=== PATIENT | male | born 1980 | race Caucasian/White ===

== ENCOUNTER 2021-01-15 05:38 | Day surgery (SDC) | payer OTHER ==
[~2021-01-15] VITALS: Ht 182.9 cm; Wt 100.0 kg
[2021-01-15] MEDS ORDERED: SODIUM CHLORIDE 0.9% 1,000 ML ONE (05:47)
[2021-01-15 06:09] LABS: COVID AG,FIA SOURCE NASOPHARYNGEAL
[2021-01-15 06:15] LABS: BASOPHILS % (AUTO) 0.5 % (0.0-2.0); EOSINOPHILS % (AUTO) 2.5 % (1.0-6.0); HEMATOCRIT 43.1 % (41-53); HEMOGLOBIN 14.7 g/dL (13.5-17.5); LYMPHOCYTES # (AUTO) 1.6 K/uL (1.0-4.8); LYMPHOCYTES % (AUTO) 32.6 % (22.0-44.0); MEAN CORPUSCULAR HEMOGLOBIN 30.8 pg (26.0-34.0); MEAN CORPUSCULAR HGB CONC 34.1 G/dL (31.0-37.0); MEAN CORPUSCULAR VOLUME 90 fL (80-100); MONOCYTES # (AUTO) 0.6 K/uL (0.1-1.0); MONOCYTES % (AUTO) 13.1 % (2.0-9.0); NEUTROPHILS # (AUTO) 2.5 K/uL (1.8-7.7); NEUTROPHILS % (AUTO) 51.3 % (40.0-70.0); PLATELET COUNT (AUTO) 198 K/uL (150-450); RED BLOOD CELL COUNT(AUTO) 4.78 MIL/uL (4.50-5.90); RED CELL DISTRIBUTION WIDTH 12.7 % (11.5-14.5)
[2021-01-15] MEDS ORDERED: ASPIRIN 325 MG TABLET PO ONE (06:15)
[2021-01-15] MEDS ORDERED: DiphenhydrAMINE HCL 50 MG CAPSULE PO ONE (06:15)
[2021-01-15] MEDS ORDERED: DIAZEPAM 10 MG TABLET PO ONE (06:15)
[2021-01-15] MEDS ORDERED: CILO100T PO (06:20)
[2021-01-15] MEDS ORDERED: DiphenhydrAMINE HCL 50 MG CAPSULE ONE (06:23)
[2021-01-15 06:25] LABS: ANION GAP 5 mmol/L (8-16); CALCIUM, TOTAL 8.7 mg/dL (8.8-10.5); CARBON DIOXIDE 32 mmol/L (22-29); CHLORIDE 105 mmol/L (98-107); CREATININE 0.95 mg/dL (0.60-1.30); GLOMERULAR FILTR. RATE CALC > 60 mL/min (>60); GLUCOSE,RANDOM 98 mg/dL (70-110); POTASSIUM 4.2 mmol/L (3.5-5.1); SODIUM SERUM 142 mmol/L (136-145); UREA NITROGEN, BLOOD 13 mg/dL (7-18)
[2021-01-15] MEDS ORDERED: CLOP75TA32 PO (06:30)
[2021-01-15] MEDS ORDERED: ISOS30TA68 PO (06:30)
[2021-01-15] MEDS ORDERED: NITR0.4T50 SL (06:30)
[2021-01-15] MEDS ORDERED: ASPI-1444 PO (06:30)
[2021-01-15] MEDS ORDERED: ATOR40TA71 PO (06:30)
[2021-01-15] MEDS ORDERED: METO-391 PO (06:30)
[2021-01-15] MEDS ORDERED: LOSA50TA37 PO (06:30)
[2021-01-15 06:42] LABS: INR 1.1 (0.9-1.1); PROTHROMBIN TIME 11.7 SEC (9.4-11.6)
[2021-01-15] MEDS ORDERED: SODIUM CHLORIDE 0.9% 1,000 ML IV ONE (06:45)
[2021-01-15] MEDS ORDERED: SODIUM BICARBONATE 50 MEQ/50 ML VIAL ONE (07:13)
[2021-01-15] MEDS ORDERED: HEPARIN SODIUM 1000 UNITS/NS 1,000 ML ONE (07:13)
[2021-01-15] MEDS ORDERED: IOHEXOL 300 MG/ML 50 ML VIAL ONE (07:13)
[2021-01-15] MEDS ORDERED: IOHEXOL 300 MG/ML 100 ML VIAL ONE (07:13)
[2021-01-15] MEDS ORDERED: IOHEXOL 300 MG/ML 150 ML VIAL ONE (07:13)
[2021-01-15] MEDS ORDERED: IODIXANOL 320 MG/ML 150 ML VIAL ONE ×2 (07:52→09:36)
[2021-01-15] MEDS ORDERED: IODIXANOL 320 MG/ML 50 ML VIAL ONE (07:52)
[2021-01-15 07:54] VITALS: BP 128/74
[2021-01-15] MEDS ORDERED: FentaNYL CITRATE PF 100 MCG/2 ML VIAL ONE (08:06)
[2021-01-15] MEDS ORDERED: MIDAZOLAM HCL 2 MG/2 ML VIAL ONE (08:06)
[2021-01-15] MEDS ORDERED: IODIXANOL 320 MG/ML 100 ML VIAL ONE (08:40)
[2021-01-15] MEDS ORDERED: FentaNYL CITRATE PF 100 MCG/2 ML VIAL IVP ONE (08:45)
[2021-01-15] MEDS ORDERED: LIDOCAINE 1% 30 ML/SOD BICARB 8.4% 4 ML SQ ONE (08:45)
[2021-01-15] MEDS ORDERED: HEPARIN SODIUM 1000 UNITS/NS 1,000 ML IARTER ONE (08:45)
[2021-01-15] MEDS ORDERED: HEPARIN SODIUM,PORCINE 5,000 UNITS/ML VIAL IVP ONE (08:45)
[2021-01-15] MEDS ORDERED: MIDAZOLAM HCL 2 MG/2 ML VIAL IVP ONE (08:45)
[2021-01-15] MEDS ORDERED: NITROGLYCERIN 50 MG/D5% WATER 250 ML ONE (09:23)
[2021-01-15] MEDS ORDERED: IODIXANOL 320 MG/ML 50 ML VIAL IARTER ONE (09:30)
[2021-01-15] MEDS ORDERED: NITROGLYCERIN/D5W 50 MG/250 ML IV BOTTLE IARTER ONE (09:30)
[2021-01-15] MEDS ORDERED: IODIXANOL 320 MG/ML 150 ML VIAL IARTER ONE (09:30)
[2021-01-15 09:46] VITALS: BP 130/68
[2021-01-15] MEDS ORDERED: HYDROCODONE/ACETAMINOPHEN 10-325 MG TABLET PO PRN (10:30)
[2021-01-15] MEDS ORDERED: ACETAMINOPHEN 325 MG TABLET PO PRN (10:30)
[2021-01-15] MEDS ORDERED: ACETAMINOPHEN 325 MG TABLET ONE (11:59)
== END 2021-01-15 13:05 | disposition home or self-care (01) ==
LOC: CATHLAB 05:38
PROVIDERS: ATTEND Internal Medicine Cardiovascular Disease
DX: I70.211 Atherosclerosis of native arteries of extremities with intermittent claudication, right leg (principal); G47.30 Sleep apnea, unspecified; I25.10 Atherosclerotic heart disease of native coronary artery without angina pectoris; E78.5 Hyperlipidemia, unspecified; K21.9 Gastro-esophageal reflux disease without esophagitis; F41.9 Anxiety disorder, unspecified; E03.9 Hypothyroidism, unspecified; Z82.49 Family history of ischemic heart disease and other diseases of the circulatory system; F12.90 Cannabis use, unspecified, uncomplicated; Z95.5 Presence of coronary angioplasty implant and graft; Z79.01 Long term (current) use of anticoagulants
CPT/HCPCS: 36415; 37225; 75630; 80048; 85025; 85610; 85730; 87426; 93005; 99152; 99153; C1714; C1725; C1760; C1769; C1887; C9803; J1644; J2250; J3010; J3490 ×2; J7030; Q9967 ×3; 36200; 37229; 75716; 75962; Z7610

== ENCOUNTER 2021-06-05 05:39 | Day surgery (SDC) | payer OTHER ==
[2021-06-04 09:37] LABS: BASOPHILS % (AUTO) 0.7 % (0.0-2.0); EOSINOPHILS % (AUTO) 2.9 % (1.0-6.0); HEMATOCRIT 41.9 % (41-53); HEMOGLOBIN 14.7 g/dL (13.5-17.5); LYMPHOCYTES # (AUTO) 1.4 K/uL (1.0-4.8); LYMPHOCYTES % (AUTO) 29.5 % (22.0-44.0); MEAN CORPUSCULAR HEMOGLOBIN 30.9 pg (26.0-34.0); MEAN CORPUSCULAR HGB CONC 35.1 G/dL (31.0-37.0); MEAN CORPUSCULAR VOLUME 88 fL (80-100); MONOCYTES # (AUTO) 0.5 K/uL (0.1-1.0); MONOCYTES % (AUTO) 10.3 % (2.0-9.0); NEUTROPHILS # (AUTO) 2.7 K/uL (1.8-7.7); NEUTROPHILS % (AUTO) 56.6 % (40.0-70.0); PLATELET COUNT (AUTO) 183 K/uL (150-450); RED BLOOD CELL COUNT(AUTO) 4.75 MIL/uL (4.50-5.90); RED CELL DISTRIBUTION WIDTH 12.9 % (11.5-14.5)
[2021-06-04 09:40] LABS: COVID AG,FIA SOURCE NASOPHARYNGEAL
[2021-06-04 09:45] LABS: ANION GAP 7 mmol/L (8-16); CALCIUM, TOTAL 8.8 mg/dL (8.8-10.5); CARBON DIOXIDE 30 mmol/L (22-29); CHLORIDE 107 mmol/L (98-107); CREATININE 0.94 mg/dL (0.60-1.30); GLOMERULAR FILTR. RATE CALC > 60 mL/min (>60); GLUCOSE,RANDOM 113 mg/dL (70-110); POTASSIUM 4.1 mmol/L (3.5-5.1); SODIUM SERUM 144 mmol/L (136-145); UREA NITROGEN, BLOOD 12 mg/dL (7-18)
[2021-06-04 09:51] LABS: ALANINE AMINOTRANSFERASE 105 U/L (12-78); ALKALINE PHOSPHATASE 72 U/L (46-116); ASPARTATE AMINOTRANSFERASE 33 U/L (15-37); BILIRUBIN,TOTAL 0.3 mg/dL (0.1-1.0); INR 1.1 (0.9-1.1); PROTHROMBIN TIME 11.4 SEC (9.4-11.6); TOTAL PROTEIN, SERUM 6.7 g/dL (6.4-8.2)
[~2021-06-05] VITALS: Ht 182.9 cm; Wt 100.0 kg
[~2021-06-05 05:39] MED LIST: ASPI-1444 PO; ATOR40TA28 PO; CILO100T PO; CLOP75TA32 PO; FAMO20 PO; IBUP-2759 PO; LOSA-382 PO; METO-391 PO; NITR0.4T50 SL; SODIUM CHLORIDE 0.9% 1,000 ML IV ONE; SODIUM CHLORIDE 0.9% 1,000 ML ONE
[2021-06-05] MEDS ORDERED: PROPOFOL 1% 20 ML VIAL IVP ONE (05:40)
[2021-06-05] MEDS ORDERED: FentaNYL CITRATE PF 100 MCG/2 ML VIAL IVP ONE (05:40)
[2021-06-05] MEDS ORDERED: MIDAZOLAM HCL 2 MG/2 ML VIAL IVP ONE (05:40)
[2021-06-05] MEDS ORDERED: DiphenhydrAMINE HCL 50 MG CAPSULE ONE (07:20)
[2021-06-05] MEDS ORDERED: DIAZEPAM 5 MG TABLET ONE (07:20)
[2021-06-05] MEDS ORDERED: IODIXANOL 320 MG/ML 100 ML VIAL ONE ×2 (07:27→09:37)
[2021-06-05] MEDS ORDERED: IODIXANOL 320 MG/ML 50 ML VIAL ONE (07:27)
[2021-06-05] MEDS ORDERED: IODIXANOL 320 MG/ML 150 ML VIAL ONE (07:28)
[2021-06-05] MEDS ORDERED: LIDOCAINE/PF 1% 30 ML VIAL ONE (07:28)
[2021-06-05] MEDS ORDERED: SODIUM BICARBONATE 50 MEQ/50 ML VIAL ONE (07:28)
[2021-06-05] MEDS ORDERED: HEPARIN SODIUM 1000 UNITS/NS 1,000 ML ONE (07:28)
[2021-06-05] MEDS ORDERED: DiphenhydrAMINE HCL 50 MG CAPSULE PO ONE (07:30)
[2021-06-05] MEDS ORDERED: DIAZEPAM 5 MG TABLET PO ONE (07:30)
[2021-06-05 08:06] VITALS: BP 136/71
[2021-06-05] MEDS ORDERED: FentaNYL CITRATE PF 100 MCG/2 ML VIAL ONE (08:15)
[2021-06-05] MEDS ORDERED: MIDAZOLAM HCL 2 MG/2 ML VIAL ONE (08:16)
[2021-06-05] MEDS ORDERED: IODIXANOL 320 MG/ML 50 ML VIAL IARTER ONE (09:15)
[2021-06-05] MEDS ORDERED: HEPARIN SODIUM 1000 UNITS/NS 1,000 ML IARTER ONE (09:15)
[2021-06-05] MEDS ORDERED: IODIXANOL 320 MG/ML 150 ML VIAL IARTER ONE (09:15)
[2021-06-05] MEDS ORDERED: HEPARIN SODIUM,PORCINE 5,000 UNITS/ML VIAL IVP ONE (09:15)
[2021-06-05] MEDS ORDERED: IODIXANOL 320 MG/ML 100 ML VIAL IARTER ONE (09:15)
[2021-06-05] MEDS ORDERED: LIDOCAINE 1% 30 ML/SOD BICARB 8.4% 4 ML SQ ONE (09:15)
[2021-06-05] MEDS ORDERED: NITROGLYCERIN 50 MG/D5% WATER 250 ML ONE (09:29)
[2021-06-05] MEDS ORDERED: NITROGLYCERIN/D5W 50 MG/250 ML IV BOTTLE IARTER ONE (09:45)
[2021-06-05] MEDS ORDERED: HYDROCODONE/ACETAMINOPHEN 5-325 MG TABLET PO PRN (10:15)
[2021-06-05] MEDS ORDERED: SODIUM CHLORIDE 0.9% 500 ML IV ONE (10:15)
[2021-06-05 10:31] VITALS: BP 127/52
== END 2021-06-05 13:05 | disposition home or self-care (01) ==
LOC: SDS 05:39
PROVIDERS: ATTEND Internal Medicine Cardiovascular Disease
DX: I70.211 Atherosclerosis of native arteries of extremities with intermittent claudication, right leg (principal); I10 Essential (primary) hypertension; I25.10 Atherosclerotic heart disease of native coronary artery without angina pectoris; G47.30 Sleep apnea, unspecified; K21.9 Gastro-esophageal reflux disease without esophagitis; F41.9 Anxiety disorder, unspecified; E03.9 Hypothyroidism, unspecified; E78.2 Mixed hyperlipidemia; Z79.899 Other long term (current) drug therapy; Z79.01 Long term (current) use of anticoagulants; Z79.82 Long term (current) use of aspirin; Z82.49 Family history of ischemic heart disease and other diseases of the circulatory system
CPT/HCPCS: 36415; 37225; 75625; 75710; 80053; 85025; 85610; 85730; 87426; 93005; C1714; C1725; C1760; C1887; C9803; J1644; J2250; J2704; J3010; J3490 ×3; J7030; Q9967 ×3; 36200; 37229; 75630; 75716; 75962; Z7610